=== PATIENT | female | born 1975 | race Hispanic/Latino ===

== ENCOUNTER 2024-07-27 14:16 | Emergency (ER) | payer MEDICAID, OTHER ==
[~2024-07-27] VITALS: Ht 162.6 cm; Wt 83.9 kg
[2024-07-27] MEDS: HYDROcodone/APAP 5/325 1 TAB TABLET PO ONE (15:06)
[2024-07-27] MEDS: ketOROlac 15MG/ML VIAL (15MG/ML) IM ONE (15:07)
--- NOTE | 2024-07-27 15:42 | HMCIMG ---
Exam Type: ELBOW COMP 3+VWS LT Clinical Information: fracture Comparison: None Findings: The bone examination is unremarkable. No fractures or dislocations are seen. No radiopaque foreign bodies are noted. Soft tissues are preserved. IMPRESSION: Normal examination.
--- NOTE | 2024-07-27 15:55 | HMCIMG ---
Exam Type: HUMERUS 2+VWS LT Clinical Information: fracture Comparison: None FINDINGS: Fracture of the humeral neck is seen with associated fracture involving the base of the greater tuberosity. Glenohumeral relationship is preserved. IMPRESSION: Shoulder fracture as noted.
--- NOTE | 2024-07-27 16:09 | HMCIMG ---
Exam Type: FOREARM 2VWS LT Clinical Information: pain Comparison: None Findings: The bone examination is unremarkable. No fractures or dislocations are seen. No radiopaque foreign bodies are noted. Soft tissues are preserved. IMPRESSION: Normal examination.
[2024-07-27 16:26] VITALS: BP 121/79; PULSE 82; RESP 16; TEMP 99.1; O2SAT 97
[2024-07-27] MEDS ORDERED: MELO-108 PO (16:27)
[2024-07-27] MEDS ORDERED: HYDR-4060 PO (16:27)
--- NOTE | 2024-07-27 16:31 | ERN ---
General Chief Complaint: Arm Swelling/Redness Stated Complaint: BROKEN ARM DUE TO FALL Time Seen by MD: 14:21 History of Present Illness Initial Comments 49-year-old female who presents for left arm injury. About 48 hours ago she had a mechanical fall, she hyperextended her arm and has pain in the shoulder. She went to an outside freestanding and was told she had a fracture and needed surgery. She has not filled her prescriptions. She reports that the splint is getting tight and the pain is increasing and she is concerned that she may need surgery. She is neurovascularly intact. Allergies: Coded Allergies: No Known Drug Allergies (Unverified Allergy, Unknown, 07/27/24) Home Meds Active Scripts Meloxicam (Meloxicam) 15 Mg Tablet, 15 MG PO DAILY PRN for PAIN for 10 Days, #10 TAB Prov:SAHARA BOWMAN DO 07/27/24 Hydrocodone/Acetaminophen (Hydrocodon-Acetaminophen 5-325) 5 Mg-325 Mg Tablet, 1-2 TAB PO TIDP PRN for pain for 5 Days, #30 TAB 0 Refills Prov:SAHARA BOWMAN DO 07/27/24 Past Medical History Past Medical History: Anxiety, Arthritis, Bipolar, Depression, Hypertension, Schizophrenia Past Surgical History: Cholecystectomy, Surgical History Other: BILATERAL LEGS ROS Dictation CONSTITUTIONAL: No chills, no fever, no weakness, no diaphoresis, no malaise. HEAD/FACE: No signs of trauma. EENT: No eye pain, no blurred vision, no tearing, no double vision, no ear pain, no ear discharge, no nose pain, no nasal congestion, no throat pain, no throat swelling, no mouth pain. RESPIRATORY: No cough, no orthopnea, no SOB, no stridor, no wheezing. CARDIOVASCULAR: No chest pain, no edema, no palpitations, no syncope. GASTROINTESTINAL/ABDOMINAL: No abdominal pain, no constipation, no diarrhea, no nausea, no vomiting. GENITOURINARY: No abnormal discharge, no dysuria, no frequent urination, no hematuria. No complaints of pain in the genitals. MUSCULOSKELETAL: Left shoulder pain INTEGUMENTARY: No change in color, no change in hair/nails, no dryness, no lesion, no lumps, no rash. NEUROLOGICAL/PSYCH: No anxiety, not depressed, no emotional problem, no headache, no numbness, no pre-existing deficit, no history of seizures, no tremors, no weakness. HEMATOLOGIC/LYMPHATIC: Not anemic, no history of blood clots, no apparent bleed ing, no bruising, glands not swollen. All Systems Negative, Except as Noted. Physical Exam Physical Exam Dictation VITAL SIGNS: Reviewed. GENERAL APPEARANCE: Alert, oriented x3, no acute distress. HEAD AND FACE: Non-traumatic. EYES: PERRL, pink conjunctivas, eyelid no trauma, anterior chamber clear. EARS: Pinnas intact and no signs of trauma or erythema. Ear canals clear and no discharge. TMs no erythema. NOSE: No discharge, no bleeding. OROPHARYNX: Mouth normal, teeth no caries, tongue pink. Pharynx clear, no erythema. Tonsils no exudates, no abscesses noted. Mucous membrane moist. NECK: Supple, non-tender, no thyromegaly, no masses, no JVD, no bruits. BREAST: Deferred. CHEST: No tenderness, no crepitus, no paradoxical movement, no retractions. LUNGS: Clear, well-ventilated, symmetric, no rales, no wheezing, no rhonchi, no stridor, good breath sounds bilaterally. HEART: Regular rate, regular rhythm, no murmur, no gallops. VASCULAR: No peripheral edema. ABDOMEN: Soft, positive bowel sounds, nondistended, no guarding, nontender, no rebound, no masses no hepatomegaly, no splenomegaly, no Neri's sign, no hernias. RECTAL: Deferred. GENITAL: Deferred. NEUROLOGICAL: Normal speech, gross motor function intact, gross sensory function intact. MUSCULOSKELETAL: Left shoulder swelling EXTREMITIES: Nontender, full range of motion. SKIN: Color pink, dry, no turgor, no rash, no lacerations, no abrasions, no contusions. LYMPHATICS: Deferred. MDM CC: Left shoulder pain status post fall 48 hours ago. Went to an outside facility and was told she had an open fracture and needed surgery, but she reports the pain is increasing. She was not filled her prescriptions. She has a posterior slab splint at 90 from mid humerus to her wrist. Historian: Patient Comorbidities: Anxiety, depression, bipolar, hypertension Limitations by social determinants of health: None Differential diagnosis: Fracture, soft tissue injury, other Vital signs are stable Clinically I removed the posterior slab splint. It appears she has a proximal humerus fracture. Placed in a sling. Neurovascularly intact. Bruising. X-ray shows a fracture of the surgical neck Consultation: I contacted Dr. Gao, orthopedist, showed pictures of the x- rays. We agreed the patient can follow up as an outpatient on Tuesday. Patient was in his sling, comfortable, received [place] here in the ER. DC with a prescription for [place] and meloxicam and orthopedic follow up. ED Course Orders Procedure Category Date Status Time Humerus 2+Vws Lt RAD 07/27/24 Resulted 14:35 Elbow Comp 3+Vws Lt RAD 07/27/24 Resulted 14:35 Ketorolac PHA 07/27/24 Complete Tromethamine 15mg/Ml 15:00 Hydrocodone/Apap PHA 07/27/24 Complete 5/325 ([place] 5/325mg) 15:00 Forearm 2vws Lt RAD 07/27/24 Resulted 15:20 Current Medications Medications (Trade) Dose Ordered Sig/Rose Route PRN Reason Start Time Stop Time Status Last Admin Dose Admin Acetaminophen/ Hydrocodone Bitart (NORco 5/325MG) 1 tab ONCE ONCE PO 07/27/24 15:00 07/27/24 15:01 DC 07/27/24 15:06 Ketorolac Tromethamine (toRADol) 15 mg ONCE ONCE IM 07/27/24 15:00 07/27/24 15:01 DC 07/27/24 15:07 Vital Signs Date Time Temp Pulse Resp B/P (MAP) Pulse Ox O2 Delivery O2 Flow Rate FiO2 07/27/24 16:26 99.1 82 16 121/79 97 Room Air* 0 21 07/27/24 14:22 99.1 80 16 124/81 96 Room Air 0 DX & DISP Disposition: Discharge Departure Impression: Primary Impression: Closed fracture of left proximal humerus Condition: Stable Scripts Meloxicam (Meloxicam) 15 Mg Tablet 15 MG PO DAILY PRN for PAIN for 10 Days, #10 TAB Prov: SAHARA BOWMAN DO 07/27/24 Hydrocodone/Acetaminophen (Hydrocodon-Acetaminophen 5-325) 5 Mg-325 Mg Tablet 1-2 TAB PO TIDP PRN for pain for 5 Days, #30 TAB 0 Refills Prov: SAHARA BOWMAN DO 07/27/24 Additional Instructions: You have a proximal humerus fracture (surgical neck). Keep the sling on that you have been provided. As we discussed, I recommend that you apply ice to the shoulder for at least 15- 20 minutes three or 4 times daily for the next few days. This will reduce inflammation and help with the pain. I have prescribed meloxicam, which is a nonsteroidal anti-inflammatory pain medication. Take this once per day for the next 7-10 days for pain. Do not mix this medication with naproxen, ketorolac, or ibuprofen. I have prescribed [place] tabs. These are Tylenol/opiate combination pain medications. You can take one or two tabs up to 3 times a day as needed for pain. You will need to follow up with an orthopedist. I have given you a referral to Dr. Gao. Go to her clinic on Tuesday (07/31/24) morning. Please return to the emergency department if you have any concerns. Referrals: SHERMAN GAO MD, RYAN E DO Jul 27, 2024 16:31
== END 2024-07-27 16:40 | disposition home or self-care (01) ==
LOC: EDH 14:16
DX: S42.212A Unspecified displaced fracture of surgical neck of left humerus, initial encounter for closed fracture (principal); F20.9 Schizophrenia, unspecified; F31.9 Bipolar disorder, unspecified; F41.9 Anxiety disorder, unspecified; I10 Essential (primary) hypertension; M19.90 Unspecified osteoarthritis, unspecified site; Z79.899 Other long term (current) drug therapy; Z90.49 Acquired absence of other specified parts of digestive tract; Z98.890 Other specified postprocedural states; W18.39XA Other fall on same level, initial encounter; Y93.89 Activity, other specified; Y92.89 Other specified places as the place of occurrence of the external cause; Y99.8 Other external cause status
CPT/HCPCS: 99284; 73080; 73090; 73060; 96372; J1885; 29105

== ENCOUNTER → 2024-08-16 | Outpatient (CLI) | payer MEDICAID ==
[~2024-08-16] MED LIST: HYDR-4060 PO; MELO-108 PO
[2024-08-16 14:18] LABS: BASOPHILS # (AUTO) 0.03 K/uL (0.00-0.20); BASOPHILS % (AUTO) 0.3 % (0.0-5.0); EOSINOPHILS % (AUTO) 1.9 % (0.0-8.0); HEMATOCRIT 33.1 % (36-48); IMMATURE GRANULOCYTE ABSOLUTE 0.04 K/uL (0-1); LYMPHOCYTES # (AUTO) 3.1 K/uL (1.0-4.8); LYMPHOCYTES % (AUTO) 30.4 % (21.0-51.0); MEAN CORPUSCULAR HEMOGLOBIN 30.3 pg (27.0-33.0); MEAN CORPUSCULAR HGB CONC 32.6 g/dL (32.0-36.0); MONOCYTES # (AUTO) 0.4 K/uL (0.1-1.0); NEUTROPHILS # (AUTO) 6.5 K/uL (1.8-7.7); PLATELET COUNT (AUTO) 278 K/uL (130-400); RED BLOOD CELL COUNT(AUTO) 3.56 MIL/uL (4.00-5.50); WHITE BLOOD COUNT (AUTO) 10.3 K/uL (4.8-10.8)
[2024-08-16 14:28] LABS: INR 0.98 (0.85-1.15); PROTHROMBIN TIME 10.4 SEC (9.6-11.6)
[2024-08-16 14:29] LABS: PARTIAL THROMBOPLASTIN TIME 25.4 SEC (26.3-35.5)
[2024-08-16 14:55] LABS: ALBUMIN 2.8 g/dL (3.5-5.0); CREATININE 0.7 mg/dL (0.5-1.0); POTASSIUM 3.8 mmol/L (3.5-5.1)
[2024-08-16 14:57] LABS: AMPHET/METH SCREEN,URINE NEGATIVE (NEGATIVE); BARBITURATE SCREEN, URINE NEGATIVE (NEGATIVE); BENZODIAZEPINES SCREEN,URINE POSITIVE (NEGATIVE); CANNABINOID SCREEN,URINE NEGATIVE (NEGATIVE); COCAINE SCREEN,URINE POSITIVE (NEGATIVE); OPIATE SCREEN,URINE POSITIVE (NEGATIVE); PHENCYCLIDINE SCREEN,URINE NEGATIVE (NEGATIVE)
--- NOTE | 2024-08-16 15:45 | NUR ---
RE: CANCEL SX PATIENT CAME IN TO [facility] WITH SISTER. PATIENT DROWSY, ASLEEP IN LAB. NEEDS ASSISTANCE TO AMBULATE. SISTER STATES THAT PATIENT WAS "DRINKING ALCOHOL AND POPPING PILLS." UDS AND ETOH ORDERED ON PATIENT. SENT PATIENT HOME AND TOLD HER WOULD CALL HER LATER WITH SURGERY TIME. UDS POSITIVE AND INFORMED DR SHAFER OF RESULTS. SURGERY CANCELED. CALLED PATIENT AND INFORMED HER THAT SURGERY WAS CANCELED DUE TO ABNORMAL LAB RESULTS.
[2024-08-24 14:12] LABS: AMPHETAMINES SERUM Negative ng/mL (Cutoff:50); COCAINE+METABOLITES SERUM ++POSITIVE++ ng/mL (Cutoff:25)
== END ==
LOC: DAH 13:22 → EDSTATUS 08-17 08:00
PROVIDERS: ATTEND Student in an Organized Health Care Education/Training Program
DX: S42.202A Unspecified fracture of upper end of left humerus, initial encounter for closed fracture (principal); Z53.8 Procedure and treatment not carried out for other reasons; M25.512 Pain in left shoulder; I10 Essential (primary) hypertension; E03.9 Hypothyroidism, unspecified; K21.9 Gastro-esophageal reflux disease without esophagitis; F41.9 Anxiety disorder, unspecified; F32.A Depression, unspecified; R56.9 Unspecified convulsions; Z98.891 History of uterine scar from previous surgery; Z90.49 Acquired absence of other specified parts of digestive tract; Z98.890 Other specified postprocedural states; Z82.49 Family history of ischemic heart disease and other diseases of the circulatory system; Z79.899 Other long term (current) drug therapy; Z79.82 Long term (current) use of aspirin
CPT/HCPCS: 36415; 80048; 80305; 80307; 82040; 84703; 85025; 85610; 85730; 86140